=== PATIENT | female | born 1935 | race Caucasian/White ===

== ENCOUNTER → 2019-04-12 | Outpatient (REF) | payer MEDICARE ==
[~2019-04-12] MED LIST: /CIPR75TA; ADVAIR100 INHALATION; ALLEGRA180 PO; CALTRATE PO; CELEXA20 PO; CLARITIN10 PO; COMPAZIN10 PO; COUM1TAB17; COUM1TAB18; COUMADIN5 PO; DECADRON PO; DILAUDID PO; EFFEXORXL3 PO; FLAG250T; FLEXERIL10 PO; HABITROL14 TOPICAL; KLORCON10 PO; LIPITOR10 PO; LIPITOR20 PO; LISI10TA4; LISINOPR10 PO; LOZOL PO; LOZOL25 PO; MESAPOW; METHADONE ORAL; METO5TAB2; MIACALCIN; MSCONTIN PO; NITRODUR TOPICAL; OLANZAPINE PO; OMEPRAZ20 PO; OXYCON10 PO; OXYCON20 PO; PAMELOR10 PO; PHENERG RECTALLY; PHENERGA25 PO; POTASSIU10 PO; PRILOSEC20 PO; PRILOSECOT PO; PROT1TAB2; PROZAC PO; PROZAC20 PO; REGLAN5 PO; REMERON PO; REMERON15 PO; RESTORIL PO; ROXANOL PO; ROXICET PO; VICO5TAB; VICODIN PO; VITAMIND PO; XANA0.25; XANA1TAB2; XANAX0.25 PO; ZOCOR40 PO; [UNRECOGNIZED DRUG - CODE] PO; [UNRECOGNIZED DRUG - CODE] PO; [UNRECOGNIZED DRUG - CODE] PO; [UNRECOGNIZED DRUG - CODE] PO; [UNRECOGNIZED DRUG - OTHER] PO; [UNRECOGNIZED DRUG - OTHER] TOPICAL
[2019-04-13 12:02] LABS: BLOOD UREA NITROGEN 17 MG/DL (7-18); CALCIUM LEVEL 9.2 MG/DL (8.8-10.2); CARBON DIOXIDE LEVEL 31 MEQ/L (21-32); CHLORIDE LEVEL 99 MEQ/L (98-107); CREATININE FOR GFR 0.75 MG/DL (0.55-1.30); GLOMERULAR FILTRATION RATE > 60.0 (>32); GLUCOSE, FASTING 102 MG/DL (70-100); POTASSIUM SERUM 4.3 MEQ/L (3.5-5.1); SODIUM LEVEL 138 MEQ/L (136-145)
== END ==
LOC: M SFHCCLAY 16:05
PROVIDERS: ATTEND Nurse Practitioner Family
DX: R60.0 Localized edema (principal); I10 Essential (primary) hypertension
CPT/HCPCS: 80048; G0463

== ENCOUNTER → 2019-04-20 | Outpatient (REF) | payer MEDICARE ==
[2019-04-21 11:39] LABS: BLOOD UREA NITROGEN 15 MG/DL (7-18); CALCIUM LEVEL 9.5 MG/DL (8.8-10.2); CARBON DIOXIDE LEVEL 32 MEQ/L (21-32); CHLORIDE LEVEL 94 MEQ/L (98-107); CREATININE FOR GFR 0.83 MG/DL (0.55-1.30); GLOMERULAR FILTRATION RATE > 60.0 (>32); GLUCOSE, FASTING 149 MG/DL (70-100); POTASSIUM SERUM 3.8 MEQ/L (3.5-5.1); SODIUM LEVEL 134 MEQ/L (136-145)
== END ==
LOC: M SFHCCLAY 14:08
PROVIDERS: ATTEND Nurse Practitioner Family
DX: R60.0 Localized edema (principal)
CPT/HCPCS: 80048; G0463

== ENCOUNTER → 2019-05-19 | Outpatient (REF) | payer MEDICARE ==
[2019-05-19 16:16] LABS: ALBUMIN 3.2 GM/DL (3.2-5.2); BLOOD UREA NITROGEN 29 MG/DL (7-18); CALCIUM LEVEL 9.3 MG/DL (8.8-10.2); CARBON DIOXIDE LEVEL 27 MEQ/L (21-32); CHLORIDE LEVEL 92 MEQ/L (98-107); CREATININE FOR GFR 0.92 MG/DL (0.55-1.30); GLOMERULAR FILTRATION RATE > 60.0 (>32); GLUCOSE, FASTING 146 MG/DL (70-100); HEMATOCRIT 39.7 % (36.0-47.0); MEAN CORPUSCULAR HGB CONC 35.3 g/dl (32.0-36.5); MEAN CORPUSCULAR VOLUME 99.3 fl (80.0-96.0); PHOSPHORUS LEVEL 3.6 MG/DL (2.5-4.9); PLATELET COUNT, AUTOMATED 301 10^3/uL (150-450); POTASSIUM SERUM 3.6 MEQ/L (3.5-5.1); SODIUM LEVEL 135 MEQ/L (136-145); WHITE BLOOD COUNT 11.7 10^3/uL (4.0-10.0)
== END ==
LOC: M SFHCCLAY 11:47
PROVIDERS: ATTEND Family Medicine
DX: J44.9 Chronic obstructive pulmonary disease, unspecified (principal); I10 Essential (primary) hypertension

== ENCOUNTER 2019-06-28 16:35 | Inpatient (IN) | payer MEDICARE ==
[~2019-06-28] VITALS: Ht 152.4 cm; Wt 32.6 kg
[2019-06-28 18:09] LABS: BASO # 0.1 10^3/uL (0.0-0.2); BASO % 0.3 % (0.0-1.0); HEMATOCRIT 44.2 % (36.0-47.0); HEMOGLOBIN 13.7 g/dl (12.0-15.5); LYMPH # 0.3 10^3/uL (1.5-5.0); LYMPH % 2.1 % (24.0-44.0); MEAN CORPUSCULAR VOLUME 96.7 fl (80.0-96.0); MONO # 0.3 10^3/uL (0.0-0.8); MONO % 1.9 % (0.0-5.0); NEUTROPHILS # 15.7 10^3/uL (1.5-8.5); PLATELET COUNT, AUTOMATED 340 10^3/uL (150-450); RED BLOOD COUNT 4.57 10^6/uL (4.00-5.40); WHITE BLOOD COUNT 16.5 10^3/uL (4.0-10.0)
[2019-06-28 18:20] LABS: INR 1.17; PROTHROMBIN TIME 14.7 SECONDS (11.8-14.0)
[2019-06-28 18:32] LABS: ALBUMIN 2.4 GM/DL (3.2-5.2); BILIRUBIN,DIRECT 0.2 MG/DL (0.0-0.2); BILIRUBIN,TOTAL 0.6 MG/DL (0.2-1.0); C REACTIVE PROTEIN QUANTITATIV 10.9 MG/DL (0.00-0.30); CALCIUM LEVEL 8.9 MG/DL (8.8-10.2); CREATININE FOR GFR 1.24 MG/DL (0.55-1.30); GLOMERULAR FILTRATION RATE 43.8 (>32); POTASSIUM SERUM 4.9 MEQ/L (3.5-5.1); PREALBUMIN 10.2 MG/DL (20.0-40.0); TOTAL PROTEIN 6.8 GM/DL (6.4-8.2)
[2019-06-28 18:43] LABS: ERYTHROCYTE SEDIMENTATION RATE 68 mm/hr (0-30)
[2019-06-28] MEDS ORDERED: cefTRIAXone SOD 2 GM in D5W MINI-BAG PLUS 50 ML IV ONE (19:00)
[2019-06-28] MEDS ORDERED: AZITHROMYCIN INJ 500 MG, VIAL MATE ADAPTER 1 EACH in D5W 250 ML IV ONE (19:00)
--- NOTE | 2019-06-28 19:15 | REP ---
PORTABLE CHEST: AP portable view of the chest was performed and compared to prior study of 06/07/2019. There is an oval area of consolidative opacity in the right hilar region which may represent a mass versus focal medial parenchymal consolidation. Other remaining lung euceda appear clear. Heart does not appear to be significantly enlarged. There is calcification of the thoracic aorta. Electronically Signed by Jan Johnson MD 06/28/2019 07:38 P
--- NOTE | 2019-06-28 19:26 | HPEPDOC ---
[facility] Medical History & Physical Date of Admission Jun 28, 2019 Date of Service: Jun 28, 2019 Primary Care Physician: Jorge Perdue MD Attending Physician: Jorge Perdue MD History and Physical TIME OF SERVICE: 8:25 PM CHIEF COMPLAINT: Weakness HISTORY OF PRESENT ILLNESS: This 73-year-old female was brought to the ER by her son because she has been more weak than usual lately and he does not think that he can help care for her knee more. The patient's son lives across the street from his parents. The patient has been falling frequently, has had fevers, chills, urinary incontinence, is not eating well, and has lost weight. At her baseline. The patient does have some memory deficits with regards to recent vents, but over the last few weeks this has become much worse. Currently the patient denies having any pain. REVIEW OF SYSTEMS: 12 point review of systems negative except as listed in HPI PAST MEDICAL/ SURGICAL HISTORY: Chronic hypertension COPD Chronic Depression Osteoporosis. History of PE on anticoagulants. Possible dementia? Status post right hip ORIF Status post kyphoplasty Status post appendectomy SOCIAL HISTORY: Quit smoking FAMILY HISTORY: Unobtainable ALLERGIES: Please see below. HOME MEDICATIONS: Please see below. PHYSICAL EXAMINATION: VITAL SIGNS: Please see below. GEN: Cachectic /NAD INTEGUMENT: not flushed/ not jaundice HEENT: NCAT / lips acyanotic /mucus membranes dry CVS: RRR/NMRG/radial pulses intact / no lower extremity edema LUNGS: lungs are clear to auscultation bilaterally on room air ABDOMEN: Contour scaphoid / there are no masses or lesions /the abdomen is soft & not tender with palpation NEURO : She knows her name, does not know where we are, does not know the and, and cannot name the president PSYCH: Asleep but arousable vocal stimuli LABORATORY DATA: See below. IMAGING: Chest x-ray " There is an oval area of consolidative opacity in the right hilar region which may represent a mass versus focal medial parenchymal consolidation. Other remaining lung euceda appear clear. Heart does not appear to be significantly enlarged. There is calcification of the thoracic aorta." MICROBIOLOGY: Please see below. ASSESSMENT: Ms. Kelley is an 83-year-old with past medical history of COPD, HTN depression, osteoporosis, and history of PE who is admitted for evaluation of SIRS vs sepsis source TBD, altered mental status and weakness. Plan 1. Sepsis possibly secondary to pneumonia vs UTI vs other cause TBD She is not complaining of upper respiratory tract symptoms or abdominal pain. SIRS criteria include HR >90 / WBC >12 / RR >20 Lactic acidic is 4 CRP and ESR are elevated She has nondiabetic hyperglycemia The chest x-ray shows an area of consultation at the right is causes to be determined. The UA is positive for WBCs & Leukocyte esterase She received ceftriaxone and azithromycin in the ER Plan: admit to PCU / telemetry / Sepsis protocol w repeat lactic acid, and pro- calcitonin & IVF/switch to Zosyn and meropenem/ order IV fluids/f/u blood cx, UA w Cx / follow-up CT of the chest / Acetaminophen PRN for fever / target MAP 65 to 70 mmHG / f/u Is and Os with target UOP of atleast 0.5 ml/kg/H / target serum glucose 140-180 while acutely ill 2. Encephalopathy ? It was difficult to obtain a clear history from the son, but appears as if the patient has underlying dementia and worsening mental status over the last few weeks. The worsening of her mental status may be due to an infection Plan: Frequent neuro checks/fall precautions 3. Weakness/falls. Plan: PT and social work consult for possible placement 4. Protein calorie malnutrition / cachexia Her prealbumin is 10.2 BMI is 14.5. Plan: Encourage oral intake 5. Chronic hypertension Plan: Monitor vitals 6. COPD Stable. Plan: Albuterol when necessary DVT PROPHYLAXIS: Heparin DISPOSITION: Possible placement after more than 2 midnight's stay Vital Signs Vital Signs Date Time Temp Pulse Resp B/P (MAP) Pulse Ox O2 Delivery O2 Flow Rate FiO2 06/28/19 18:15 06/28/19 16:36 100.9 127 22 94 Room Air Laboratory Data Labs 24H Laboratory Tests 2 06/28/19 17:46: Prothrombin Time 14.7H, Prothromb Time International Ratio 1.17, Activated Partial Thromboplast Time 26.0 06/28/19 17:48: Immature Granulocyte % (Auto) 0.7, Neutrophils (%) (Auto) 95.0H, Lymphocytes (%) (Auto) 2.1L, Monocytes (%) (Auto) 1.9, Eosinophils (%) (Auto) 0.0, Basophils (%) (Auto) 0.3, Neutrophils # (Auto) 15.7H, Lymphocytes # (Auto) 0.3L, Monocytes # (Auto) 0.3, Eosinophils # (Auto) 0.0, Basophils # (Auto) 0.1, Nucleated Red Blood Cells % (auto) 0.0, Erythrocyte Sedimentation Rate 68H, Anion Gap 11, Glomerular Filtration Rate 43.8, Calcium Level 8.9, Total Bilirubin 0.6, Direct Bilirubin 0.2, Aspartate Amino Transf (AST/SGOT) 22, Alanine Aminotransferase (ALT/SGPT) 8L, Alkaline Phosphatase 65, C-Reactive Protein, Quantitative 10.90H, GN-Liu-T-Type Natriuretic Peptide 4594H, Total Protein 6.8, Albumin 2.4L, Albumin/Globulin Ratio 0.55L, Prealbumin 10.2L 06/28/19 17:51: Lactic Acid Level 4.4*H 06/28/19 18:47: CBC/BMP Laboratory Tests 06/28/19 17:48 Microbiology Microbiology 06/28/19 Blood Culture, Received Pending 06/28/19 Blood Culture, Received Pending Home Medications No Active Prescriptions or Reported Meds Allergies Coded Allergies: alendronate sodium (Verified Allergy, Intermediate, 06/28/19) aspirin (Verified Allergy, Unknown, 06/28/19) codeine (Verified Adverse Reaction, Mild, gi upset, 06/28/19) erythromycin base (Verified Adverse Reaction, Mild, gi upset, 06/28/19) A-FIB/CHADSVASC A-FIB History Current/History of A-Fib/PAF?: No Current PO Anticoag Therapy: LITTLE Steen MD Jun 28, 2019 19:26
[2019-06-28] MEDS ORDERED: NS 500 ML IV ONE ×2 (19:30→22:00)
[2019-06-28] MEDS ORDERED: MOM 30ML SUSPENSION UDC PO PRN (19:30)
[2019-06-28] MEDS ORDERED: ACETAMINOPHEN TAB 650MG DOSE (2X325MG) PO PRN (19:30)
[2019-06-28] MEDS ORDERED: MAALOX 30 ML SUSP *UDC PO PRN (19:30)
[2019-06-28 19:31] LABS: INFLUENZA A AMPLIFICATION NEGATIVE (NEGATIVE); INFLUENZA B AMPLIFICATION NEGATIVE (NEGATIVE)
[2019-06-28 21:05] VITALS: BP 130/62
--- NOTE | 2019-06-28 21:14 | REPVR ---
PROCEDURE INFORMATION: Exam: CT Chest Without Contrast Exam date and time: 06/28/2019 8:02 PM Age: 83 years old Clinical indication: Abnormal chest x-ray. TECHNIQUE: Imaging protocol: Computed tomography of the chest without contrast. 3D rendering: MIP reconstructed images were created by the technologist. Radiation optimization: All CT scans at this facility use at least one of these dose optimization techniques: automated exposure control; mA and/or kV adjustment per patient size (includes targeted exams where dose is matched to clinical indication); or iterative reconstruction. COMPARISON: CR PORTABLE CHEST X-RAY 06/28/2019 6:10 PM (The report from this study was not available for review at the time of this interpretation.) CR CHEST 2 VIEW 06/07/2015 9:59:53 AM FINDINGS: Thyroid: Unremarkable. Lungs: There are centrilobular emphysematous changes, predominantly in the upper lobes. There is a 5.5 cm x 4.8 cm x 5.7 cm spiculated mass in the right lower lobe. There is an additional 14 mm spiculated nodule in the posterior segment of the right lower lobe (image 61 of the axial series 201). Incidental note is made of a 3 mm calcified granuloma in the left lower lobe (image 43 of the axial series 201). The major airways are patent. Pleural space: Unremarkable. No pneumothorax. No pleural effusion. No calcified pleural plaques. Heart: No cardiomegaly. There is a small water density pericardial effusion. There are coronary artery calcifications, mitral annular calcifications, and aortic valve calcifications. Mediastinum: No mediastinal mass, fluid collection, or pneumomediastinum. Pulmonary arteries: The pulmonary artery trunk is dilated and measures 3 cm in diameter, which can be seen with pulmonary artery hypertension. Aorta: There is no thoracic aortic aneurysm or intramural hematoma. The ascending aorta measures 3.7 cm x 3.7 cm and the descending thoracic aorta measures 2.3 cm x 2.3 cm at the level of the pulmonary artery trunk. The imaged portion of the infrarenal abdominal aorta measures 2.8 cm x 2.8 cm. There are extensive atherosclerotic calcifications. Lymph nodes: Normal. No enlarged lymph nodes. Liver: There is a 12 mm cyst in the posterior superior segment 7 of the right hepatic lobe for which follow-up is not necessary. The liver was not fully imaged. Spleen: Unremarkable. No splenomegaly is noted. Adrenals: There is a 17 mm left adrenal nodule that measures 17 Hounsfield units, which is indeterminate. There is thickening of the right adrenal gland. Kidneys and ureters: There is a 9 mm simple cyst in the inferior pole of the left kidney. The lower pole of the left kidney was not fully imaged. The unenhanced right kidney is unremarkable. No stones are seen in the renal collecting systems. There is no hydronephrosis or hydroureter. No perinephric fluid collection is present. Atherosclerotic renal arterial calcifications are present. Bones/joints: There is expansile lytic lesion destroying the cortex of the left lateral 6th rib, which is compatible with a metastatic deposit that measures approximately 2.7 cm. No other suspicious osteolytic or osteoblastic lesion is identified. The bones have a demineralized appearance. There is an old healed fracture deformity of the left posterior 7th rib. There are chronic mild anterior wedge compression fractures of T5, T6, T10, T11, and T12, which are similar in appearance compared to the prior chest x-ray on 06/07/2015. There are chronic moderate anterior wedge compression fractures of T7 and T8 with cement in the T7 and T8 vertebral bodies related to a vertebroplasty and are similar in appearance compared to the prior chest x-ray on 06/07/2015. There is extravasation of the cement from the T8 vertebral body into the anterior epidural space at the T8 level. There is a chronic healed fracture deformity of the right distal radial metaepiphysis. There is a levoscoliosis of the thoracic spine, which is likely positional nature. Soft tissues: Unremarkable. IMPRESSION: 1. 5.5 cm x 4.8 cm x 5.7 cm spiculated mass in the right lower lobe, which is most compatible with a primary lung cancer with a 14 mm satellite lesion in the posterior segment of the right lower lobe and a destructive lytic metastasis in the left lateral 6th rib. 2. 17 mm indeterminate left adrenal nodule. Further evaluation can be performed with an adrenal protocol CT abdomen with intravenous contrast using 70-second and 15-minute scan delays after the administration of the intravenous contrast. 3. Emphysematous changes in both lungs. 4. Dilation of the pulmonary artery trunk, which may indicate pulmonary artery hypertension. 5. Small transudative pericardial effusion. Electronically signed by: Hector Banuelos On 06/28/2019 21:14:33 PM
[2019-06-28] MEDS ORDERED: ALBUTEROL SULFATE 2.5 MG/0.5 ML INH NEB SOLN NEB PRN (22:15)
[2019-06-28] MEDS: DOCUSATE SODIUM 100 MG CAP PO SCH (22:38)
[2019-06-28] MEDS: HEPARIN SOD (PORCINE) 5000 UNITS/ML VIAL SC SCH (22:39)
[2019-06-28 22:47] LABS: INR 1.24; PROTHROMBIN TIME 15.3 SECONDS (11.8-14.0)
[2019-06-28] MEDS ORDERED: MEROPENEM INJ 1 GM in IV 1 EA IV ONE (23:00)
[2019-06-29] VITALS: BP 120/70
[2019-06-29] MEDS: LINEZOLID 600 MG in IV 1 EA IV SCH ×2 (00:13→12:00)
[2019-06-29 04:00] VITALS: BP 110/60
[2019-06-29 05:22] LABS: HEMATOCRIT 33.3 % (36.0-47.0); MEAN CORPUSCULAR HGB CONC 31.5 g/dl (32.0-36.5); MEAN CORPUSCULAR VOLUME 95.1 fl (80.0-96.0); PLATELET COUNT, AUTOMATED 242 10^3/uL (150-450); WHITE BLOOD COUNT 10.9 10^3/uL (4.0-10.0)
[2019-06-29 05:26] LABS: HEMOGLOBIN 10.5 g/dl (12.0-15.5)
[2019-06-29 06:00] LABS: BLOOD UREA NITROGEN 32 MG/DL (7-18); CALCIUM LEVEL 7.8 MG/DL (8.8-10.2); CARBON DIOXIDE LEVEL 24 MEQ/L (21-32); CHLORIDE LEVEL 104 MEQ/L (98-107); CREATININE FOR GFR 0.85 MG/DL (0.55-1.30); GLOMERULAR FILTRATION RATE > 60.0 (>32); GLUCOSE, FASTING 124 MG/DL (70-100); MAGNESIUM LEVEL 1.9 MG/DL (1.8-2.4); POTASSIUM SERUM 3.8 MEQ/L (3.5-5.1); SODIUM LEVEL 137 MEQ/L (136-145)
[2019-06-29] MEDS: HEPARIN SOD (PORCINE) 5000 UNITS/ML VIAL SC SCH ×3 (06:03→21:42)
[2019-06-29] MEDS ORDERED: MEROPENEM INJ 500 MG in IV 1 EA IV SCH (07:00)
[2019-06-29 08:00] VITALS: BP 135/61
[2019-06-29] MEDS: DOCUSATE SODIUM 100 MG CAP PO SCH ×2 (09:44→21:42)
--- NOTE | 2019-06-29 10:13 | IPNPDOC ---
Subjective Date Seen The patient was seen on 06/29/19. Subjective Chief Complaint/HPI weakness Events since last encounter Patient admitted overnight for confusion, weakness and meeting SIRS criteria. Today, patient states she feels well. denies c/o. Found to have sacral decubitus and barrier cream was applied. General: Reports: Fatigue, Malaise Constitutional: Reports: Weakness, Weight Loss, Lethargy; Denies: Chills, Fever, Night Sweats ENT: Denies: Head Aches, Ear Pain, Dysphagia Pulmonary: Denies: Dyspnea, Cough Cardiovascular: Denies: Chest Pain, Palpitations, Orthopnea, Paroxysmal Noc. Dyspnea, Lt Headedness Gastrointestinal: Denies: Nausea, Vomiting, Abdominal Pain, Diarrhea, Constipation Genitourinary: Reports: Other Symptoms (parikh catheter in place); Denies: Dysuria, Frequency, Retention Psych: Reports: Mood Normal; Denies: Depression, Memory Issues Objective Physical Examination General Exam: Positive: Alert, No Acute Distress Chest Exam: Positive: Clear to auscultation, Normal air movement Heart Exam: Positive: Rate Normal, Regular Rhythm, Normal S1, Normal S2; Negative: Murmurs, Rubs Telemetry: Positive: No significant arrhythmia Abdomen Exam: Positive: Normal bowel sounds, Soft; Negative: Tenderness, Hepatospenomegaly Extremity Exam: Positive: Normal pulses; Negative: Clubbing, Cyanosis, Edema Skin Exam: Positive: Breakdown (sacral decubitus stage 2 noted. [address] cream in [address]) Assessment /Plan Problems (1) SIRS (systemic inflammatory response syndrome) Status: Acute Problem Text: lactic acid is improved with hydration. Etiology may be UTI, urine cx pending. Current antibiotic therapy: Meropenem and Linezolid. WBC improved to 10.9 from 16.5 on admission (2) Weakness Status: Acute Problem Text: son states hx of dementia and patient refuses hygiene or care in home. noted progressive weakness. PT/OT eval ordered. may be related to urine infection. (3) Sacral decubitus ulcer, stage II Status: Chronic Problem Text: Has been evaluated by wound care as an outpatient. turn and posit ion q 2 hrs, barrier cream applied. (4) Protein-calorie malnutrition, severe Status: Chronic Problem Text: dietary consult placed. (5) Cachexia Status: Chronic (6) Pulmonary mass Status: Chronic Problem Text: This is previously known to patient and son. She has repeatedly refused workup and is aware this is most likely a cancerous process. (7) Adrenal nodule Status: Chronic Problem Text: This is previously known to patient and son. She has repeatedly refused workup (8) DVT (deep venous thrombosis) Status: Chronic Problem Text: patient refuses anti-coagulation (9) HTN (hypertension) Status: Chronic (10) Edema Status: Chronic Problem Text: chornic hx of HTN with pedal edema. echo ordered. Has taken Chlorthalidone in the past. She waxes and wanes in compliance with medications. 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 prn albuterol. Patient states she feels she is at baseline. Plan/VTE VTE Prophylaxis Ordered?: Yes Plan Therapy: PT, OT Diagnostics: TTE Anticipated Discharge: [facility] VS, I&O, 24H, Fishbone Vital Signs/I&O Vital Signs Date Time Temp Pulse Resp B/P (MAP) Pulse Ox O2 Delivery O2 Flow Rate FiO2 06/29/19 08:00 96.9 91 16 135/61 (85) 96 Room Air I&O- Last 24 Hours up to 6 AM 06/29/19 06:00 Intake Total 1300 ml Output Total 300 ml Balance 1000 ml Laboratory Data 24H LABS Laboratory Tests 2 06/28/19 17:46: Prothrombin Time 14.7H, Prothromb Time International Ratio 1.17, Activated Partial Thromboplast Time 26.0 06/28/19 17:48: Immature Granulocyte % (Auto) 0.7, Neutrophils (%) (Auto) 95.0H, Lymphocytes (%) (Auto) 2.1L, Monocytes (%) (Auto) 1.9, Eosinophils (%) (Auto) 0.0, Basophils (%) (Auto) 0.3, Neutrophils # (Auto) 15.7H, Lymphocytes # (Auto) 0.3L, Monocytes # (Auto) 0.3, Eosinophils # (Auto) 0.0, Basophils # (Auto) 0.1, Nucleated Red Blood Cells % (auto) 0.0, Erythrocyte Sedimentation Rate 68H, Anion Gap 11, Glomerular Filtration Rate 43.8, Calcium Level 8.9, Total Bilirubin 0.6, Direct Bilirubin 0.2, Aspartate Amino Transf (AST/SGOT) 22, Alanine Aminotransferase (ALT/SGPT) 8L, Alkaline Phosphatase 65, C-Reactive Protein, Quantitative 10.90H, UX-Ymm-S-Type Natriuretic Peptide 4594H, Total Protein 6.8, Albumin 2.4L, Albumin/Globulin Ratio 0.55L, Prealbumin 10.2L 06/28/19 17:51: Lactic Acid Level 4.4*H 06/28/19 18:47: Influenza Type A (RT-PCR) NEGATIVE, Influenza Type B (RT-PCR) NEGATIVE 06/28/19 20:25: Urine Color FELI, Urine Appearance TURBIDH, Urine pH 5.0, Urine Specific [place] 1.021, Urine Protein 2+H, Urine Glucose (UA) NEGATIVE, Urine Ketones TRACEH, Urine Blood 1+H, Urine Nitrite NEGATIVE, Urine Bilirubin NEGATIVE, Urine Urobilinogen 0.2, Urine Leukocyte Esterase 3+H, Urine WBC (Auto) TNTCH, Urine RBC (Auto) 45H, Urine Hyaline Casts (Auto) 7, Urine Bacteria (Auto) 3+H, Urine Squamous Epithelial Cells 2, Urine Mucus (Auto) LARGE, Urine Sperm (Auto) 06/28/19 22:15: Prothrombin Time 15.3H, Prothromb Time International Ratio 1.24, Lactic Acid Level 1.6 06/29/19 03:18: Bedside Glucose (Misc Panel) 153H 06/29/19 04:42: Nucleated Red Blood Cells % (auto) 0.0, Anion Gap 9, Glomerular Filtration Rate > 60.0, Calcium Level 7.8L, Magnesium Level 1.9, C-Reactive Protein, Quantitative 14.00H CBC/BMP Laboratory Tests 06/28/19 17:48 06/29/19 04:42 Microbiology Microbiology 06/28/19 Urine Culture, Received Pending 06/28/19 Blood Culture, Received Pending 06/28/19 Blood Culture, Received Pending 06/28/19 Blood Culture, Received Pending Tatum Hendrix [facility] Jun 29, 2019 10:13
[2019-06-29] MEDS ORDERED: SLF 3 ML SYR IV PRN (11:15)
[2019-06-29 12:00] VITALS: BP 150/68
[2019-06-29] MEDS ORDERED: CEFTAROLINE FOSAMIL 200 MG in D5W 50 ML IV SCH (14:00)
--- NOTE | 2019-06-29 14:29 | IPN ---
DATE: 06/29/2019 I met with Kyara and her son Clinton (I have known Kyara all my life and grew up with her son Clinton, so we have a good line of communication). She admitted generalized weakness, stage 2 sacral decubitus, and protein calorie malnutrition with cachexia primarily related to malignancy. She has a left lung mass that looks obviously suspicious for malignancy with a suspected lytic lesion in a left rib. I had an extensive conversation with Kyara and her son today. This is most likely a lung cancer, but we will need tissue to confirm this. She agrees to CT guided biopsy of the lung mass. We also had a long discussion about advanced directives and she indicated that she would want to be DO NOT RESUSCITATE (DNR). She also has a DO NOT INTUBATE (DNI) status with no tube feedings. She does agree to IV fluids, hospitalization and antibiotics as necessary. I have changed her code status. We made out a new medical orders for life-sustaining treatment (MOLST) form. This was signed by appropriate parties. A copy of this has been entered into her [employer] chart and I asked to have a copy sent to the [place] office for her [employer] chart and the original form will go home with her family. Her prognosis is poor, but she does want to understand what she is dealing with and we can't know that until we get a biopsy done and see what she has on pathology. She has a suspected urinary tract infection as well as an infected decubitus. Her cultures are all pending. I ended up changing her antibiotic regimen from Zyvox and meropenem to Ceftaroline, it should cover both skin and soft tissue as well as urinary. The patient is refusing her methicillin-resistant Staphylococcus aureus (MRSA) screen and so I have discontinued this as well. Off the Zyvox, it is a moot point anyway.
[2019-06-29] MEDS ORDERED: LIDOCAINE 1% MDV 20ML VIAL As Ordered ONE (15:11)
[2019-06-29 16:00] VITALS: BP 153/69
[2019-06-29] MEDS: SLF 3 ML SYR IV SCH ×2 (16:30→21:42)
[2019-06-29] MEDS: CEFTAROLINE FOSAMIL 300 MG in D5W 50 ML IV SCH (16:30)
[2019-06-29 20:09] VITALS: BP 122/50
[2019-06-30] VITALS: BP 148/68
[2019-06-30 04:00] VITALS: BP 160/80
[2019-06-30] MEDS: CEFTAROLINE FOSAMIL 300 MG in D5W 50 ML IV SCH (04:20)
[2019-06-30 05:27] LABS: BASO # 0.1 10^3/uL (0.0-0.2); BASO % 0.5 % (0.0-1.0); EOS # 0.6 10^3/uL (0.0-0.5); EOS % 6.1 % (0.0-3.0); HEMATOCRIT 31.3 % (36.0-47.0); HEMOGLOBIN 10.2 g/dl (12.0-15.5); LYMPH # 0.7 10^3/uL (1.5-5.0); LYMPH % 7.2 % (24.0-44.0); MEAN CORPUSCULAR HEMOGLOBIN 30.7 pg (27.0-33.0); MEAN CORPUSCULAR HGB CONC 32.6 g/dl (32.0-36.5); MEAN CORPUSCULAR VOLUME 94.3 fl (80.0-96.0); MONO # 0.7 10^3/uL (0.0-0.8); MONO % 7.8 % (0.0-5.0); NEUTROPHILS # 7.1 10^3/uL (1.5-8.5); NEUTROPHILS % 77.7 % (36.0-66.0); PLATELET COUNT, AUTOMATED 255 10^3/uL (150-450); RED BLOOD COUNT 3.32 10^6/uL (4.00-5.40); WHITE BLOOD COUNT 9.1 10^3/uL (4.0-10.0)
[2019-06-30 05:56] LABS: BLOOD UREA NITROGEN 29 MG/DL (7-18); CALCIUM LEVEL 8.1 MG/DL (8.8-10.2); CARBON DIOXIDE LEVEL 27 MEQ/L (21-32); CHLORIDE LEVEL 104 MEQ/L (98-107); CREATININE FOR GFR 0.85 MG/DL (0.55-1.30); GLOMERULAR FILTRATION RATE > 60.0 (>32); GLUCOSE, FASTING 95 MG/DL (70-100); POTASSIUM SERUM 3.7 MEQ/L (3.5-5.1); SODIUM LEVEL 137 MEQ/L (136-145)
[2019-06-30] MEDS: SLF 3 ML SYR IV SCH ×3 (06:15→20:29)
[2019-06-30] MEDS: HEPARIN SOD (PORCINE) 5000 UNITS/ML VIAL SC SCH ×3 (06:17→20:29)
[2019-06-30 08:00] VITALS: BP 188/72
--- NOTE | 2019-06-30 08:49 | IPNPDOC ---
Subjective Date Seen The patient was seen on 06/30/19. Subjective Chief Complaint/HPI SIRS weakness Events since last encounter See note from Dr. Perdue on 06/29/18 for DNR/DNI lung mass discussion.Patient refused bx last evening and again declines bx this am. Constitutional: Denies: Chills, Fever, Night Sweats Pulmonary: Denies: Dyspnea, Cough Cardiovascular: Denies: Chest Pain, Palpitations, Orthopnea, Paroxysmal Noc. Dyspnea, Lt Headedness Gastrointestinal: Denies: Nausea, Vomiting, Abdominal Pain, Diarrhea, Consti pation Genitourinary: Denies: Dysuria, Frequency, Incontinence, Retention Objective Physical Examination General Exam: Positive: Alert, No Acute Distress Chest Exam: Positive: Clear to auscultation, Normal air movement Heart Exam: Positive: Rate Normal, Regular Rhythm, Normal S1, Normal S2; Negative: Murmurs, Rubs Telemetry: Positive: No significant arrhythmia Abdomen Exam: Positive: Normal bowel sounds, Soft; Negative: Tenderness, Hepatospenomegaly Extremity Exam: Positive: Normal pulses; Negative: Clubbing, Cyanosis, Edema Skin Exam: Positive: Breakdown (sacral decubitus stage 2 noted. Bar[address] cream in place) Assessment /Plan Problems (1) SIRS (systemic inflammatory response syndrome) Status: Acute Response to Treatment: Improving Problem Text: secondary to E. faecalis UTI. Changed to po Amoxicillin based on sensitivity. lactic acid is improved with hydration. Etiology may be UTI, urine cx pending. Current antibiotic therapy: Meropenem and Linezolid. WBC improved to 10.9 from 16.5 on admission (2) Weakness Status: Acute Problem Text: son states hx of dementia and patient refuses hygiene or care in home. noted progressive weakness. PT/OT eval ordered. may be related to urine infection. (3) Sacral decubitus ulcer, stage II Status: Chronic Problem Text: Has been evaluated by wound care as an outpatient. turn and position q 2 hrs, barrier cream applied. (4) Protein-calorie malnutrition, severe Status: Chronic Problem Text: dietary consult placed. (5) Cachexia Status: Chronic (6) Pulmonary mass Status: Chronic Problem Text: continues to decline bx. will work toward getting patient home with home services. This is previously known to patient and son. She has repeatedly refused workup and is aware this is most likely a cancerous process. (7) Adrenal nodule Status: Chronic Problem Text: This is previously known to patient and son. She has repeatedly refused workup (8) DVT (deep venous thrombosis) Status: Chronic Problem Text: patient refuses anti-coagulation (9) HTN (hypertension) Status: Chronic (10) Edema Status: Chronic Problem Text: chornic hx of HTN with pedal edema. echo ordered. Has taken Chlorthalidone in the past. She waxes and wanes in compliance with medications. 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 prn albuterol. Patient states she feels she is at baseline. Plan/VTE VTE Prophylaxis Ordered?: Yes Plan Therapy: PT, OT Diagnostics: TTE Anticipated Discharge: Detention VS, I&O, 24H, Fishbone Vital Signs/I&O Vital Signs Date Time Temp Pulse Resp B/P (MAP) Pulse Ox O2 Delivery O2 Flow Rate FiO2 06/30/19 08:00 97.6 87 18 188/72 (110) 93 Room Air I&O- Last 24 Hours up to 6 AM 06/30/19 06:00 Intake Total 1000 ml Output Total 400 ml Balance 600 ml Laboratory Data 24H LABS Laboratory Tests 2 06/29/19 12:14: Bedside Glucose (Misc Panel) 112H 06/29/19 18:07: Bedside Glucose (Misc Panel) 97 06/29/19 23:13: Bedside Glucose (Misc Panel) 118H 06/30/19 05:03: Immature Granulocyte % (Auto) 0.7, Neutrophils (%) (Auto) 77.7H, Lymphocytes (%) (Auto) 7.2L, Monocytes (%) (Auto) 7.8H, Eosinophils (%) (Auto) 6.1H, Basophils (%) (Auto) 0.5, Neutrophils # (Auto) 7.1, Lymphocytes # (Auto) 0.7L, Monocytes # (Auto) 0.7, Eosinophils # (Auto) 0.6H, Basophils # (Auto) 0.1, Nucleated Red Blood Cells % (auto) 0.0, Anion Gap 6L, Glomerular Filtration Rate > 60.0, Calcium Level 8.1L CBC/BMP Laboratory Tests 06/30/19 05:03 Microbiology Microbiology 06/28/19 Urine Culture - Final, Complete Enterococcus Faecalis 06/28/19 Blood Culture - Preliminary, Resulted No growth after 24 hours . All specim... 06/28/19 Blood Culture - Preliminary, Resulted No growth after 24 hours . All specim... 06/28/19 Blood Culture - Preliminary, Resulted No growth after 24 hours . All specim... Tatum Hendrix [facility] Jun 30, 2019 08:49
[2019-06-30] MEDS ORDERED: CHLORTHALIDONE 25 MG TAB PO SCH (09:00)
[2019-06-30] MEDS: DOCUSATE SODIUM 100 MG CAP PO SCH ×2 (10:16→20:28)
[2019-06-30] MEDS: AMOXICILLIN 875 MG TAB PO SCH ×2 (10:16→20:28)
--- NOTE | 2019-06-30 12:05 | REP ---
INDICATION: Confusion PROCEDURE: CT head without contrast COMPARISON STUDIES: No prior similar studies FINDINGS: No acute bleed or acute large vessel territorial infarct. Ventricles, cisterns and sulci are prominent, but within normal limits for age. No mass effect or midline shift shift. No abnormal fluid collections. There is diffuse age-related volume loss and ventriculomegaly with subcortical white matter low attenuation consistent with sequelae of chronic small vessel ischemic disease. IMPRESSION: No acute findings. Age-related volume loss and white matter changes. Electronically Signed by Con Britt MD 06/30/2019 11:57 A
[2019-06-30 16:00] VITALS: BP 145/70
[2019-06-30 22:00] VITALS: BP 152/82
[2019-07-01] MEDS: HEPARIN SOD (PORCINE) 5000 UNITS/ML VIAL SC SCH ×3 (05:32→20:43)
[2019-07-01] MEDS: SLF 3 ML SYR IV SCH ×3 (05:33→22:00)
[2019-07-01 06:00] VITALS: BP 116/50
--- NOTE | 2019-07-01 06:29 | ECHO ---
DATE OF PROCEDURE: 06/29/2019 REFERRING PROVIDER: TRINITY King INDICATION: Localized edema unspecified. HEIGHT: 150 cm. WEIGHT: 32.8 kg. 2D MEASUREMENTS: Left atrium - 3.8 cm Ventricular septum - 1.19 cm Posterior wall - 1.16 cm Left ventricle diastole - 4.0 cm Aortic root - 50.5 cm LVOT - 2.0 cm Inferior vena cava - 1.4 cm DOPPLER MEASUREMENTS: Aortic valve velocity - 138 cm/s LVOT velocity - 118 cm/s LVOT VTI - 23.3 cm No aortic regurgitation. No mitral regurgitation. Mild to trace tricuspid regurgitation. No pulmonic regurgitation. Mitral E velocity - 54.3 cm/s Mitral A velocity - 117 cm/s Mitral deceleration time - 162 ms Estimated right ventricle systolic pressure 47-52 mmHg Estimated right atrial pressure 5-10 mmHg MITRAL ANNULAR TISSUE DOPPLER: E prime septal - 4.4 cm/s E prime lateral - 4.7 cm/s DESCRIPTION: Rhythm was sinus. This is a moderate technically difficult echocardiogram. No pericardial effusion. This is a 2D, M-mode, color flow Doppler and pulsed wave Doppler examination including mitral annular tissue Doppler. CONCLUSIONS: 1. Normal left ventricle internal dimensions and wall thickness. Hyperdynamic LV systolic function, LVEF of 75% by visual estimate. No regional wall motion abnormalities of the left ventricle. Grade 1 LV diastolic dysfunction (impaired relaxation filling pattern). 2. Mild left atrial dilatation. 3. Suggestive of moderate elevation of estimated right ventricle systolic pressure. Normal right ventricle size and systolic function. 4. Moderate aortic valve sclerosis of a three-cuspid aortic valve. No aortic stenosis or regurgitation. 5. Moderate mitral annular calcification. No mitral regurgitation. No mitral stenosis.
[2019-07-01 07:06] LABS: BASO # 0.1 10^3/uL (0.0-0.2); BASO % 0.6 % (0.0-1.0); EOS # 0.4 10^3/uL (0.0-0.5); EOS % 4.1 % (0.0-3.0); HEMATOCRIT 34.4 % (36.0-47.0); HEMOGLOBIN 10.7 g/dl (12.0-15.5); LYMPH # 0.7 10^3/uL (1.5-5.0); LYMPH % 7.8 % (24.0-44.0); MEAN CORPUSCULAR HEMOGLOBIN 29.7 pg (27.0-33.0); MEAN CORPUSCULAR HGB CONC 31.1 g/dl (32.0-36.5); MEAN CORPUSCULAR VOLUME 95.6 fl (80.0-96.0); MONO # 0.7 10^3/uL (0.0-0.8); MONO % 7.4 % (0.0-5.0); NEUTROPHILS # 6.9 10^3/uL (1.5-8.5); NEUTROPHILS % 79.2 % (36.0-66.0); PLATELET COUNT, AUTOMATED 251 10^3/uL (150-450); WHITE BLOOD COUNT 8.8 10^3/uL (4.0-10.0)
[2019-07-01 07:29] LABS: ALBUMIN 2.1 GM/DL (3.2-5.2); ALT/SGPT 9 U/L (12-78); BILIRUBIN,TOTAL 0.6 MG/DL (0.2-1.0); BLOOD UREA NITROGEN 22 MG/DL (7-18); CALCIUM LEVEL 8.2 MG/DL (8.8-10.2); CARBON DIOXIDE LEVEL 26 MEQ/L (21-32); CHLORIDE LEVEL 101 MEQ/L (98-107); CREATININE FOR GFR 0.74 MG/DL (0.55-1.30); GLOMERULAR FILTRATION RATE > 60.0 (>32); GLUCOSE, FASTING 74 MG/DL (70-100); POTASSIUM SERUM 3.5 MEQ/L (3.5-5.1); SODIUM LEVEL 136 MEQ/L (136-145); TOTAL PROTEIN 6.2 GM/DL (6.4-8.2)
[2019-07-01] MEDS: DOCUSATE SODIUM 100 MG CAP PO SCH ×2 (09:11→20:43)
[2019-07-01] MEDS: AMOXICILLIN 875 MG TAB PO SCH ×2 (09:12→20:43)
[2019-07-01] MEDS: CHLORTHALIDONE 12.5MG PER 1/2 TABLET PO SCH (09:12)
[2019-07-01 14:00] VITALS: BP 155/60
--- NOTE | 2019-07-01 14:29 | IPN ---
DATE: 07/01/2019 Kyara is seen on [facility]. Spent a lot of time with her son, Clinton, today and getting ready for her eventual discharge. He has elected to have her go home on hospice. I think this is entirely appropriate. She almost certainly has lung cancer that has metastatic and unresectable. She refused biopsy. She had systemic inflammatory response syndrome (SIRS) secondary to Enterococcus (E) faecalis urinary tract infection (UTI), protein calorie malnutrition, sacral decubitus, cachexia with a body mass index (BMI) of under 15, history of deep venous thrombosis (DVT) for which she has declined anticoagulation, history of chronic obstructive pulmonary disease (COPD) with suspected cor pulmonale and lower extremity edema, history of noncompliance with medical treatment as well as active smoking. PHYSICAL EXAM: Afebrile. Vital signs stable. She looks cachectic. Lungs: Decreased breath sounds. Heart: Regular rhythm. Abdomen: Soft, nontender. No peripheral edema. LABS: CBC, BMP unremarkable. Albumin is 2.1. IMPRESSION: At this point, hospice has been consulted. I would like to discharge her home with hospice tomorrow. She will need a hospital bed, which hospice can provide. She has 24/7 care between her son and other family members and neighbors. She currently is DO NOT RESUSCITATE/DO NOT INTUBATE. Will need comfort measures with that. Anticipate discharge home with hospice tomorrow.
[2019-07-01 22:00] VITALS: BP 202/84
[2019-07-01 22:55] VITALS: BP 140/63
[2019-07-02 06:00] VITALS: BP 147/87
[2019-07-02] MEDS: HEPARIN SOD (PORCINE) 5000 UNITS/ML VIAL SC SCH (06:00)
[2019-07-02] MEDS: SLF 3 ML SYR IV SCH (06:30)
[2019-07-02] MEDS: AMOXICILLIN 875 MG TAB PO SCH ×2 (08:33→08:36)
[2019-07-02] MEDS: DOCUSATE SODIUM 100 MG CAP PO SCH ×2 (08:33→08:36)
[2019-07-02] MEDS: CHLORTHALIDONE 12.5MG PER 1/2 TABLET PO SCH ×2 (08:33→08:36)
[2019-07-02] MEDS ORDERED: CHLO125TA PO (11:28)
[2019-07-02] MEDS ORDERED: AMOX875T PO (11:28)
--- NOTE | 2019-07-02 13:31 | DSES ---
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 SECONDARY DIAGNOSES: Dementia. Severe chronic obstructive pulmonary disease (COPD). Hypertension. Enterococcus urinary tract infection (UTI) infection. Sepsis secondary to enterococcal urinary tract infection and decubitus, also with altered mental status and leukocytosis. Protein calorie malnutrition with albumin at 2.1. HISTORY: Kyara Kelley is admitted with severe weakness. She has been falling, unable to care for herself, incontinent of stool and urine with skin breakdown. Had been followed by [facility] for this. She has a long smoking history. CT on admission showed a large 5.5 x 4.8 x 5.7 spiculated mass right lower lobe with satellite lesions and expansile lytic lesion on the left 6th rib. Details are in history and physical on admission. HOSPITAL COURSE: The patient was admitted to a medical bed. Initially was on IV antibiotics. Urine grew Enterococcus. Was switched to amoxicillin. Mental status waxed and waned. Did a CT of the head. No obvious metastases seen. She would not lie still enough for an MRI. I sent her down for a CT-guided biopsy of the lung lesion, with the patient refused. She wants no workup of this. We had extended discussions about advanced directives. Initially, she decided on DO NOT RESUSCITATE/DO NOT INTUBATE status but near discharge her son Clinton, who is her healthcare proxy, main decision-maker and the patient agreed on hospice discharge for comfort measures. The patient is therefore being discharged to hospice for comfort care. SIGNIFICANT LABS: White count initially 16.5, yesterday was 8.8, hemoglobin 10.7, platelets 250. Yesterday electrolytes sodium 156, potassium 3.6, BUN 22, creatinine 0.7, glucose 74, albumin 2.1. INR 1.24. Urine and blood cultures negative times three. Urine culture showed Enterococcus. DISPOSITION: Changed her discharge home to hospice care. Her primary care provider is Dr. Kt Saini and hospice care can be coordinated through him. I will put a followup in a week but specifically we do not have hospice patients do hospital followup unless they are running into problems. Her diet is as tolerated. Activity as tolerated, essentially bedrest. Her medications on discharge are amoxicillin 875 mg twice a day for five more days. She is on chlorthalidone 12.5 mg daily, which she uses for I think some edema related to cor pulmonale and low albumin. We will continue as is to help with the skin situation. Otherwise, she will be discharged on the palliative care pack. Discharge medications for hospice will be Ativan 0.5 mg one sublingual or by mouth every 4 hours as needed, maximum daily dose 3 mg, hyoscyamine 125 mg sublingual every 4 hours for terminal secretions, and morphine sulfate 20 mg/mL 1/4-1 mL sublingual every 2 hours as needed for pain. A hospital bed has been arranged. Prognosis is poor. The patient again refuses a biopsy of this.
== END 2019-07-02 13:05 | disposition hospice, home (50) | DRG 871 ==
LOC: M ED 16:35 → M ED INP 19:17 → ENRESERV 19:31 → M PCU 20:51 → M MS5PR 06-30 15:45
PROVIDERS: ADMIT Internal Medicine; ATTEND Family Medicine
DX: A41.9 Sepsis, unspecified organism (principal); E43 Unspecified severe protein-calorie malnutrition; Z68.1 Body mass index [BMI] 19.9 or less, adult; N39.0 Urinary tract infection, site not specified; C34.31 Malignant neoplasm of lower lobe, right bronchus or lung; C79.51 Secondary malignant neoplasm of bone; G93.40 Encephalopathy, unspecified; I10 Essential (primary) hypertension; J44.9 Chronic obstructive pulmonary disease, unspecified; L89.152 Pressure ulcer of sacral region, stage 2; F32.9 Major depressive disorder, single episode, unspecified; B95.2 Enterococcus as the cause of diseases classified elsewhere; Z66 Do not resuscitate; R91.8 Other nonspecific abnormal finding of lung field; F03.90 Unspecified dementia, unspecified severity, without behavioral disturbance, psychotic disturbance, mood disturbance, and anxiety; R73.9 Hyperglycemia, unspecified; M81.0 Age-related osteoporosis without current pathological fracture; Z86.711 Personal history of pulmonary embolism; Z79.01 Long term (current) use of anticoagulants; Z90.49 Acquired absence of other specified parts of digestive tract; Z87.891 Personal history of nicotine dependence; Z88.5 Allergy status to narcotic agent; Z88.6 Allergy status to analgesic agent; Z88.8 Allergy status to other drugs, medicaments and biological substances; Z88.1 Allergy status to other antibiotic agents; Z53.20 Procedure and treatment not carried out because of patient's decision for unspecified reasons